=== PATIENT | male | born 1960 | race Caucasian/White ===

== ENCOUNTER → 2022-10-23 | Day surgery (SDC) | payer MEDICARE | END | disposition home or self-care (01) | LOC: RAD 07:26 | PROVIDERS: ATTEND Orthopaedic Surgery Sports Medicine | PROC: BP281ZZ Computerized Tomography (CT Scan) of Right Shoulder using Low Osmolar Contrast (ICD-10-PCS; principal; 2022-10-23) | DX: M25.511 Pain in right shoulder (principal) | CPT/HCPCS: 23350 ==

== ENCOUNTER 2023-01-02 18:25 | Inpatient (IN) | payer MEDICARE ==
[~2023-01-02 18:25] MED LIST: Bisacodyl 10 MG SUPP PR PRN; Heparin 10,000 UNITS/ 10 ML VIAL ONE; Labetalol HCl 100 MG/20 ML VIAL SLOW IVP PRN; Ondansetron PF 4 MG/2 ML Vial ONE; PHENYLEPHRINE-NS 100 MCG/ML 10 ML SYRINGE ONE; Phenylephrine 10 MG/ML VIAL ONE; Rocuronium Bromide 10 MG/ML (10ML VIAL) ONE; SUGAMMADEX SODIUM 200 MG/2 ML VIAL ONE; Succinylcholine 200 MG/10 ml SYRINGE FS ONE; fentaNYL 50 mcg/mL 1 mL Vial ONE; niCARdipine 25 MG in Sodium Chloride 0.9% 250 ML 250 ML IVPB PRN; niCARdipine 25 MG/10 ML SDV ONE
[2023-01-02] MEDS ORDERED: Promethazine HCl 25 MG/ML VIAL IM PRN (19:15)
[2023-01-02] MEDS ORDERED: Ondansetron HCl/PF 4 MG/2 ML Vial IVP PRN (19:15)
[2023-01-02] MEDS: Atorvastatin Calcium 40 MG TAB PO SCH (20:41)
[2023-01-02] MEDS: Sodium Chloride 0.9% 1,000 ML IV SCH (20:41)
[2023-01-02] MEDS ORDERED: Dextrose 50% Abboject 50 ML SYRINGE SLOW IVP PRN (20:48)
[2023-01-02] MEDS ORDERED: Glucagon 1 MG/ML KIT IM PRN (20:48)
[2023-01-02] MEDS ORDERED: Dextrose 5% in Water 1,000 ML IV PRN (20:48)
[2023-01-02] MEDS ORDERED: Electrolyte Replacement Protocol 1 EACH FS ONE (20:49)
[2023-01-02] MEDS ORDERED: Electrolyte Replacement Protocol FS PRN (21:00)
[2023-01-02 23:33] VITALS: BMI 37.6
[2023-01-03 03:54] LABS: #Eosinphils 0.2 thou/uL (0.0-0.7); #Neutrophils 6.2 thou/uL (1.40-6.50); %Basophils 0.4 % (0.0-1.0); %Eosinophils 2.1 % (0.0-10.0); %Lymphocytes 18.2 % (21.0-51.0); %Monocytes 10.7 % (0.0-10.0); %Neutrophils 68.4 % (42.0-75.0); Hemoglobin 12.3 g/dL (14.0-18.0); Mean Corpuscular HGB CONC 31.6 g/dL (32.0-36.0); Mean Corpuscular Volume 88.6 fl (78.0-98.0); Mean Platelet Volume 10.6 fL (7.4-10.4); Platelet Count 174 10x3/uL (130-400); RBC Distribution Width 14.4 % (11.5-14.5); Red Blood Cell (RBC) Count 4.39 mill/uL (4.70-6.10); White Blood Cell (WBC) Count 9.1 10x3/uL (4.8-10.8)
[2023-01-03 04:04] LABS: Hemoglobin A1c 6.8 % (4.0-6.0)
[2023-01-03 04:19] LABS: Anion Gap 12 mmol/L (10-20); BUN (Urea Nitrogen) 16 mg/dL (8.4-25.7); Calc. Creatinine Clearance 129 mL/min (70-130); Calcium 8.5 mg/dL (7.8-10.44); Carbon Dioxide 24 mmol/L (23-31); Chloride 110 mmol/L (98-107); Cholesterol 163 mg/dl (< 200 Desired); Estimated GFR 73; Glucose 126 mg/dL (80-115); Potassium 3.8 mmol/L (3.5-5.1); Sodium 142 mmol/L (136-145)
[2023-01-03 04:20] LABS: Cardiac Risk 3.4 (Less than 4.5); HDL Cholesterol 48 mg/dL (>60 Neg Risk); LDL Cholesterol, Calculated 99 mg/dL; Magnesium 1.7 mg/dL (1.6-2.6); Triglycerides 82 mg/dL (Less than 150)
[2023-01-03] MEDS ORDERED: Magnesium 2 GM/50 ML(in water) 2 GM in Premix Bag 1 BAG IVPB SCH (08:00)
[2023-01-03] MEDS: Sodium Chloride 0.9% 1,000 ML IV SCH ×2 (08:45→19:03)
[2023-01-03] MEDS: Aspirin 325 mg Enteric Coated Tablet PO SCH (08:46)
[2023-01-03] MEDS: Pantoprazole 40 MG VIAL IVP SCH (08:46)
[2023-01-03] MEDS: Aspirin 300 MG Suppository PR SCH (08:46)
[2023-01-03] MEDS: hydrALAZINE 20 MG/ML VIAL SLOW IVP PRN ×2 (14:14→17:58)
[2023-01-03] MEDS ORDERED: Scopolamine 1.5 mg/72 hour Patch TD SCH (16:00)
[2023-01-03] MEDS: Atorvastatin Calcium 40 MG TAB PO SCH (19:39)
[2023-01-04] MEDS: Pantoprazole 40 MG VIAL IVP SCH (10:09)
[2023-01-04] MEDS: hydrALAZINE 20 MG/ML VIAL SLOW IVP PRN ×2 (10:10→16:51)
[2023-01-04] MEDS: Sodium Chloride 0.9% 1,000 ML IV SCH (10:24)
[2023-01-04] MEDS: Aspirin 325 mg Enteric Coated Tablet PO SCH (12:15)
[2023-01-04] MEDS: Aspirin 300 MG Suppository PR SCH (12:15)
[2023-01-04] MEDS: Amlodipine 10 MG TAB PO SCH (12:15)
[2023-01-04] MEDS: Valsartan 80 MG TAB PO SCH ×2 (12:15→20:23)
[2023-01-04] MEDS ORDERED: Electrolyte Replacement Protocol 1 EACH FS SCH (18:30)
[2023-01-04] MEDS: Folic Acid 1 MG TAB PO SCH (20:24)
[2023-01-04] MEDS: Atorvastatin Calcium 40 MG TAB PO SCH (20:24)
[2023-01-04] MEDS: Multivit, Therapeutic 1 TAB PO SCH (20:24)
[2023-01-04] MEDS: Cyanocobalamin (Vitamin B-12) 1,000 MCG TAB PO SCH (20:25)
[2023-01-04] MEDS: Senokot S 8.6-50 MG TAB PO SCH (20:27)
[2023-01-05 05:29] LABS: #Eosinphils 0.2 thou/uL (0.0-0.7); #Neutrophils 5.8 thou/uL (1.40-6.50); %Basophils 0.5 % (0.0-1.0); %Eosinophils 2.4 % (0.0-10.0); %Lymphocytes 12.6 % (21.0-51.0); %Monocytes 12.1 % (0.0-10.0); Hemoglobin 12.8 g/dL (14.0-18.0); Mean Corpuscular HGB CONC 32.1 g/dL (32.0-36.0); Mean Corpuscular Hemoglobin 28.4 pg (27.0-31.0); Mean Corpuscular Volume 88.7 fl (78.0-98.0); Mean Platelet Volume 9.7 fL (7.4-10.4); Platelet Count 161 10x3/uL (130-400); RBC Distribution Width 14.3 % (11.5-14.5)
[2023-01-05 05:56] LABS: Anion Gap 13 mmol/L (10-20); BUN (Urea Nitrogen) 13 mg/dL (8.4-25.7); Calc. Creatinine Clearance 143 mL/min (70-130); Calcium 8.8 mg/dL (7.8-10.44); Carbon Dioxide 23 mmol/L (23-31); Chloride 109 mmol/L (98-107); Estimated GFR 84; Glucose 138 mg/dL (80-115); Magnesium 1.9 mg/dL (1.6-2.6); Phosphorus 2.5 mg/dL (2.3-4.7); Potassium 3.5 mmol/L (3.5-5.1); Sodium 141 mmol/L (136-145)
[2023-01-05] MEDS ORDERED: Potassium Chloride 20 MEQ TAB PO SCH (08:00)
[2023-01-05] MEDS ORDERED: Magnesium 2 GM/50 ML(in water) 2 GM in Premix Bag 1 BAG IVPB SCH (08:00)
[2023-01-05] MEDS: Amlodipine 10 MG TAB PO SCH (09:04)
[2023-01-05] MEDS: Aspirin 325 mg Enteric Coated Tablet PO SCH (09:04)
[2023-01-05] MEDS: Valsartan 80 MG TAB PO SCH ×2 (09:04→20:07)
[2023-01-05] MEDS: Pantoprazole 40 MG VIAL IVP SCH (09:05)
[2023-01-05] MEDS: Senokot S 8.6-50 MG TAB PO SCH ×2 (09:06→20:07)
[2023-01-05] MEDS ORDERED: Metoprolol Tartrate 25 MG TAB PO SCH ×2 (09:15→21:00)
[2023-01-05] MEDS ORDERED: Polyethylene Glycol 3350 17 GM Packet PO PRN (17:43)
[2023-01-05] MEDS: Folic Acid 1 MG TAB PO SCH (20:07)
[2023-01-05] MEDS: Atorvastatin Calcium 40 MG TAB PO SCH (20:07)
[2023-01-05] MEDS: Cyanocobalamin (Vitamin B-12) 1,000 MCG TAB PO SCH (20:07)
[2023-01-05] MEDS: Multivit, Therapeutic 1 TAB PO SCH (20:07)
[2023-01-06 05:45] LABS: #Basophils 0.1 thou/uL (0.0-0.2); #Eosinphils 0.2 thou/uL (0.0-0.7); #Monocytes 1.2 thou/uL (0.11-0.59); #Neutrophils 6.3 thou/uL (1.40-6.50); %Basophils 0.6 % (0.0-1.0); %Eosinophils 2.4 % (0.0-10.0); %Lymphocytes 10.7 % (21.0-51.0); %Monocytes 13.6 % (0.0-10.0); %Neutrophils 72.2 % (42.0-75.0); Hemoglobin 12.6 g/dL (14.0-18.0); Mean Corpuscular HGB CONC 31.1 g/dL (32.0-36.0); Mean Corpuscular Hemoglobin 28.1 pg (27.0-31.0); Mean Corpuscular Volume 90.4 fl (78.0-98.0); Mean Platelet Volume 10.5 fL (7.4-10.4); Platelet Count 168 10x3/uL (130-400); RBC Distribution Width 14.3 % (11.5-14.5); Red Blood Cell (RBC) Count 4.48 mill/uL (4.70-6.10); White Blood Cell (WBC) Count 8.7 10x3/uL (4.8-10.8)
[2023-01-06 06:11] LABS: Anion Gap 14 mmol/L (10-20); BUN (Urea Nitrogen) 16 mg/dL (8.4-25.7); Calc. Creatinine Clearance 128 mL/min (70-130); Carbon Dioxide 26 mmol/L (23-31); Chloride 104 mmol/L (98-107); Estimated GFR 73; Glucose 129 mg/dL (80-115); Magnesium 1.8 mg/dL (1.6-2.6); Potassium 4.1 mmol/L (3.5-5.1); Sodium 140 mmol/L (136-145)
[2023-01-06] MEDS ORDERED: Magnesium 2 GM/50 ML(in water) 2 GM in Premix Bag 1 BAG IVPB SCH (08:00)
[2023-01-06] MEDS: Aspirin 325 mg Enteric Coated Tablet PO SCH (09:03)
[2023-01-06] MEDS: Valsartan 80 MG TAB PO SCH ×2 (09:03→20:35)
[2023-01-06] MEDS: Amlodipine 10 MG TAB PO SCH (09:04)
[2023-01-06] MEDS: Senokot S 8.6-50 MG TAB PO SCH ×2 (09:04→20:35)
[2023-01-06] MEDS: Pantoprazole 40 MG VIAL IVP SCH (09:05)
[2023-01-06] MEDS: Acetaminophen 325 MG TAB PO PRN ×2 (10:21→16:24)
[2023-01-06] MEDS ORDERED: Lidocaine 4% Patch TD SCH (12:00)
[2023-01-06] MEDS ORDERED: Loratadine 10 MG TAB PO PRN (13:49)
[2023-01-06] MEDS: Folic Acid 1 MG TAB PO SCH (20:35)
[2023-01-06] MEDS: Cyanocobalamin (Vitamin B-12) 1,000 MCG TAB PO SCH (20:35)
[2023-01-06] MEDS: Atorvastatin Calcium 40 MG TAB PO SCH (20:35)
[2023-01-06] MEDS: Multivit, Therapeutic 1 TAB PO SCH (20:35)
[2023-01-07] MEDS ORDERED: Transdermal Patch Removal TOP SCH (00:01)
[2023-01-07] MEDS: Acetaminophen 325 MG TAB PO PRN (04:59)
[2023-01-07 05:32] LABS: #Eosinphils 0.1 thou/uL (0.0-0.7); #Monocytes 1.2 thou/uL (0.11-0.59); %Basophils 0.4 % (0.0-1.0); %Lymphocytes 9.8 % (21.0-51.0); %Monocytes 12.8 % (0.0-10.0); %Neutrophils 75.6 % (42.0-75.0); Hemoglobin 12.7 g/dL (14.0-18.0); Mean Corpuscular HGB CONC 30.7 g/dL (32.0-36.0); Mean Corpuscular Hemoglobin 27.7 pg (27.0-31.0); Mean Corpuscular Volume 90.4 fl (78.0-98.0); Mean Platelet Volume 10.7 fL (7.4-10.4); Platelet Count 160 10x3/uL (130-400); RBC Distribution Width 14.1 % (11.5-14.5); Red Blood Cell (RBC) Count 4.58 mill/uL (4.70-6.10); White Blood Cell (WBC) Count 9.3 10x3/uL (4.8-10.8)
[2023-01-07 05:59] LABS: Anion Gap 13 mmol/L (10-20); BUN (Urea Nitrogen) 17 mg/dL (8.4-25.7); Calc. Creatinine Clearance 132 mL/min (70-130); Calcium 9.1 mg/dL (7.8-10.44); Carbon Dioxide 26 mmol/L (23-31); Chloride 107 mmol/L (98-107); Estimated GFR 75; Glucose 132 mg/dL (80-115); Potassium 4.1 mmol/L (3.5-5.1); Sodium 142 mmol/L (136-145)
[2023-01-07] MEDS ORDERED: Magnesium 2 GM/50 ML(in water) 2 GM in Premix Bag 1 BAG IVPB SCH (08:00)
[2023-01-07] MEDS: Amlodipine 10 MG TAB PO SCH (08:47)
[2023-01-07] MEDS: Aspirin 325 mg Enteric Coated Tablet PO SCH (08:47)
[2023-01-07] MEDS: Pantoprazole 40 MG VIAL IVP SCH (08:47)
[2023-01-07] MEDS: Senokot S 8.6-50 MG TAB PO SCH ×2 (08:47→20:45)
[2023-01-07] MEDS: Valsartan 80 MG TAB PO SCH ×2 (08:47→20:37)
[2023-01-07] MEDS ORDERED: Colchicine 0.6 MG TAB PO SCH ×2 (12:00→13:00)
[2023-01-07] MEDS: Dextrose 5 %-0.45 % NaCl 1,000 ML IV SCH (17:10)
[2023-01-07] MEDS: Cyanocobalamin (Vitamin B-12) 1,000 MCG TAB PO SCH (20:37)
[2023-01-07] MEDS: Atorvastatin Calcium 40 MG TAB PO SCH (20:37)
[2023-01-07] MEDS: Multivit, Therapeutic 1 TAB PO SCH (20:45)
[2023-01-07] MEDS: Folic Acid 1 MG TAB PO SCH (20:45)
[2023-01-08 05:48] LABS: #Eosinphils 0.2 thou/uL (0.0-0.7); #Monocytes 1.4 thou/uL (0.11-0.59); #Neutrophils 6.2 thou/uL (1.40-6.50); %Basophils 0.5 % (0.0-1.0); %Eosinophils 1.8 % (0.0-10.0); %Lymphocytes 11.7 % (21.0-51.0); %Monocytes 15.8 % (0.0-10.0); %Neutrophils 69.9 % (42.0-75.0); Hemoglobin 11.7 g/dL (14.0-18.0); Mean Corpuscular HGB CONC 31.5 g/dL (32.0-36.0); Mean Corpuscular Hemoglobin 28.3 pg (27.0-31.0); Mean Corpuscular Volume 89.8 fl (78.0-98.0); Mean Platelet Volume 10.8 fL (7.4-10.4); Platelet Count 161 10x3/uL (130-400); Red Blood Cell (RBC) Count 4.13 mill/uL (4.70-6.10); White Blood Cell (WBC) Count 8.9 10x3/uL (4.8-10.8)
[2023-01-08 06:15] LABS: Anion Gap 12 mmol/L (10-20); BUN (Urea Nitrogen) 17 mg/dL (8.4-25.7); Calc. Creatinine Clearance 123 mL/min (70-130); Calcium 8.4 mg/dL (7.8-10.44); Carbon Dioxide 27 mmol/L (23-31); Chloride 104 mmol/L (98-107); Estimated GFR 69; Glucose 127 mg/dL (80-115); Potassium 4.1 mmol/L (3.5-5.1); Sodium 139 mmol/L (136-145)
[2023-01-08 07:54] LABS: Bilirubin Negative (Negative); Blood, Urine Negative (Negative); Clarity Extra Turbid (Clear); Glucose, Urine (Dipstick) Normal (Negative); Ketone, Urine Negative (Negative); Leukocyte Negative Leu/uL (Negative); Nitrite Negative (Negative); Protein, Urine (Dipstick) 10 mg/dL (Neg-Trace); Specific Gravity, Urine 1.021 (1.002-1.036); Urobilinogen Normal mg/dL (Less than 2)
[2023-01-08] MEDS: Senokot S 8.6-50 MG TAB PO SCH ×2 (08:29→21:09)
[2023-01-08] MEDS: Aspirin 325 mg Enteric Coated Tablet PO SCH (08:30)
[2023-01-08] MEDS: Valsartan 80 MG TAB PO SCH ×2 (08:31→21:09)
[2023-01-08] MEDS: Amlodipine 10 MG TAB PO SCH (08:32)
[2023-01-08] MEDS: Acetaminophen 325 MG TAB PO PRN (08:33)
[2023-01-08] MEDS: Pantoprazole 40 MG VIAL IVP SCH (08:34)
[2023-01-08] MEDS: Dextrose 5 %-0.45 % NaCl 1,000 ML IV SCH (10:16)
[2023-01-08] MEDS ORDERED: predniSONE 20 MG TAB PO SCH (11:30)
[2023-01-08] MEDS: Folic Acid 1 MG TAB PO SCH (21:09)
[2023-01-08] MEDS: Atorvastatin Calcium 40 MG TAB PO SCH (21:09)
[2023-01-08] MEDS: Apixaban 5 MG TAB PO SCH (21:09)
[2023-01-08] MEDS: Cyanocobalamin (Vitamin B-12) 1,000 MCG TAB PO SCH (21:09)
[2023-01-08] MEDS: Multivit, Therapeutic 1 TAB PO SCH (21:09)
[2023-01-09] MEDS: Dextrose 5 %-0.45 % NaCl 1,000 ML IV SCH (06:05)
[2023-01-09] MEDS: Senokot S 8.6-50 MG TAB PO SCH ×2 (08:41→20:18)
[2023-01-09] MEDS: Aspirin 81 mg Enteric Coated Tablet PO SCH (08:42)
[2023-01-09] MEDS: Apixaban 5 MG TAB PO SCH ×2 (08:42→20:19)
[2023-01-09] MEDS: Amlodipine 10 MG TAB PO SCH (08:43)
[2023-01-09] MEDS: Valsartan 80 MG TAB PO SCH ×2 (08:43→20:18)
[2023-01-09] MEDS: predniSONE 20 MG TAB PO SCH (08:44)
[2023-01-09] MEDS: Pantoprazole 40 MG VIAL IVP SCH (08:44)
[2023-01-09] MEDS: levETIRAcetam 500 MG TAB PO SCH ×2 (10:22→20:19)
[2023-01-09] MEDS: Cyanocobalamin (Vitamin B-12) 1,000 MCG TAB PO SCH (20:18)
[2023-01-09] MEDS: Folic Acid 1 MG TAB PO SCH (20:19)
[2023-01-09] MEDS: Atorvastatin Calcium 40 MG TAB PO SCH (20:19)
[2023-01-09] MEDS: Multivit, Therapeutic 1 TAB PO SCH (20:19)
[2023-01-10] MEDS: Dextrose 5 %-0.45 % NaCl 1,000 ML IV SCH ×2 (02:44→20:23)
[2023-01-10] MEDS: levETIRAcetam 500 MG TAB PO SCH ×2 (08:35→20:24)
[2023-01-10] MEDS: Amlodipine 10 MG TAB PO SCH (08:35)
[2023-01-10] MEDS: Valsartan 80 MG TAB PO SCH ×2 (08:35→20:24)
[2023-01-10] MEDS: predniSONE 20 MG TAB PO SCH (08:36)
[2023-01-10] MEDS: Apixaban 5 MG TAB PO SCH ×2 (08:36→20:23)
[2023-01-10] MEDS: Senokot S 8.6-50 MG TAB PO SCH ×2 (08:36→20:25)
[2023-01-10] MEDS: Aspirin 81 mg Enteric Coated Tablet PO SCH (08:37)
[2023-01-10] MEDS: Pantoprazole 40 MG VIAL IVP SCH (08:37)
[2023-01-10] MEDS: Multivit, Therapeutic 1 TAB PO SCH (20:24)
[2023-01-10] MEDS: Cyanocobalamin (Vitamin B-12) 1,000 MCG TAB PO SCH (20:24)
[2023-01-10] MEDS: Atorvastatin Calcium 40 MG TAB PO SCH (20:25)
[2023-01-10] MEDS: Folic Acid 1 MG TAB PO SCH (20:25)
[2023-01-11] MEDS: predniSONE 20 MG TAB PO SCH (09:15)
[2023-01-11] MEDS: levETIRAcetam 500 MG TAB PO SCH ×2 (09:15→20:20)
[2023-01-11] MEDS: Apixaban 5 MG TAB PO SCH ×2 (09:15→20:21)
[2023-01-11] MEDS: Aspirin 81 mg Enteric Coated Tablet PO SCH (09:15)
[2023-01-11] MEDS: Pantoprazole 40 MG VIAL IVP SCH (09:16)
[2023-01-11] MEDS: Senokot S 8.6-50 MG TAB PO SCH (09:16)
[2023-01-11] MEDS: Amlodipine 10 MG TAB PO SCH (09:16)
[2023-01-11] MEDS: Valsartan 80 MG TAB PO SCH (09:16)
[2023-01-11] MEDS: Icosapent Ethyl 1 GM CAPSULE PO SCH (17:16)
[2023-01-11] MEDS: Atorvastatin Calcium 40 MG TAB PO SCH (20:20)
[2023-01-11] MEDS: Sacubitril 49 MG/Valsartan 51 MG TABLET PO SCH (20:20)
[2023-01-11] MEDS: Folic Acid 1 MG TAB PO SCH (20:20)
[2023-01-11] MEDS: Cyanocobalamin (Vitamin B-12) 1,000 MCG TAB PO SCH (20:20)
[2023-01-11] MEDS: Multivit, Therapeutic 1 TAB PO SCH (20:21)
[2023-01-12] MEDS: Senokot S 8.6-50 MG TAB PO SCH ×3 (05:52→20:32)
[2023-01-12] MEDS: Icosapent Ethyl 1 GM CAPSULE PO SCH ×2 (09:25→17:04)
[2023-01-12] MEDS: Sacubitril 49 MG/Valsartan 51 MG TABLET PO SCH ×2 (09:25→20:28)
[2023-01-12 09:26] LABS: Chloride 104 mmol/L (98-107)
[2023-01-12] MEDS: levETIRAcetam 500 MG TAB PO SCH ×2 (09:26→20:27)
[2023-01-12] MEDS: Aspirin 81 mg Enteric Coated Tablet PO SCH (09:26)
[2023-01-12] MEDS: Apixaban 5 MG TAB PO SCH ×2 (09:26→20:27)
[2023-01-12] MEDS: Amlodipine 10 MG TAB PO SCH (09:26)
[2023-01-12] MEDS: predniSONE 20 MG TAB PO SCH (09:26)
[2023-01-12 09:27] LABS: Calcium 9.3 mg/dL (7.8-10.44); Sodium 140 mmol/L (136-145)
[2023-01-12 09:28] LABS: Glucose 139 mg/dL (80-115)
[2023-01-12 09:29] LABS: Anion Gap 14 mmol/L (10-20); Carbon Dioxide 26 mmol/L (23-31)
[2023-01-12 09:30] LABS: Phosphorus 3.2 mg/dL (2.3-4.7)
[2023-01-12 09:31] LABS: Calc. Creatinine Clearance 130 mL/min (70-130); Estimated GFR 73
[2023-01-12 09:32] LABS: BUN (Urea Nitrogen) 20 mg/dL (8.4-25.7); Magnesium 1.7 mg/dL (1.6-2.6)
[2023-01-12] MEDS ORDERED: Magnesium 2 GM/50 ML(in water) 2 GM in Premix Bag 1 BAG IVPB SCH ×2 (09:45→10:00)
[2023-01-12] MEDS: Atorvastatin Calcium 40 MG TAB PO SCH (20:28)
[2023-01-12] MEDS: Cyanocobalamin (Vitamin B-12) 1,000 MCG TAB PO SCH (20:28)
[2023-01-12] MEDS: Folic Acid 1 MG TAB PO SCH (20:28)
[2023-01-12] MEDS: Multivit, Therapeutic 1 TAB PO SCH (20:28)
[2023-01-13] MEDS: Icosapent Ethyl 1 GM CAPSULE PO SCH ×2 (09:37→17:06)
[2023-01-13] MEDS: Amlodipine 5 MG TAB PO SCH (09:37)
[2023-01-13] MEDS: Magnesium Oxide 400 MG TAB PO SCH ×2 (09:38→21:11)
[2023-01-13] MEDS: Sacubitril 49 MG/Valsartan 51 MG TABLET PO SCH ×2 (09:38→21:11)
[2023-01-13] MEDS: Apixaban 5 MG TAB PO SCH ×2 (09:38→21:11)
[2023-01-13] MEDS: Aspirin 81 mg Enteric Coated Tablet PO SCH (09:38)
[2023-01-13] MEDS: levETIRAcetam 500 MG TAB PO SCH ×2 (09:38→21:11)
[2023-01-13] MEDS: Senokot S 8.6-50 MG TAB PO SCH ×2 (09:39→21:11)
[2023-01-13] MEDS: Multivit, Therapeutic 1 TAB PO SCH (21:11)
[2023-01-13] MEDS: Atorvastatin Calcium 40 MG TAB PO SCH (21:11)
[2023-01-13] MEDS: Folic Acid 1 MG TAB PO SCH (21:11)
[2023-01-13] MEDS: Cyanocobalamin (Vitamin B-12) 1,000 MCG TAB PO SCH (21:12)
[2023-01-14] MEDS: Sacubitril 49 MG/Valsartan 51 MG TABLET PO SCH (09:10)
[2023-01-14] MEDS: Icosapent Ethyl 1 GM CAPSULE PO SCH (09:10)
[2023-01-14] MEDS: Senokot S 8.6-50 MG TAB PO SCH (09:10)
[2023-01-14] MEDS: Aspirin 81 mg Enteric Coated Tablet PO SCH (09:10)
[2023-01-14] MEDS: Apixaban 5 MG TAB PO SCH (09:11)
[2023-01-14] MEDS: levETIRAcetam 500 MG TAB PO SCH (09:11)
[2023-01-14] MEDS: Amlodipine 5 MG TAB PO SCH (09:11)
[2023-01-14] MEDS: Magnesium Oxide 400 MG TAB PO SCH (09:12)
[2023-01-14 12:43] VITALS: BP 131/77; TEMP 96.8
== END 2023-01-14 14:15 | DRG 23 ==
LOC: SDC 18:25 → CCU 20:11 → 2SE 01-04 13:41
PROVIDERS: ADMIT Neurological Surgery; ATTEND Internal Medicine
PROC: 4A023N7 Measurement of Cardiac Sampling and Pressure, Left Heart, Percutaneous Approach (ICD-10-PCS; principal; 2023-01-02)
PROC: B2151ZZ Fluoroscopy of Left Heart using Low Osmolar Contrast (ICD-10-PCS; 2023-01-02)
PROC: 03CG0ZZ Extirpation of Matter from Intracranial Artery, Open Approach (ICD-10-PCS; 2023-01-02)
DX: I63.412 Cerebral infarction due to embolism of left middle cerebral artery (principal); G93.6 Cerebral edema; I61.9 Nontraumatic intracerebral hemorrhage, unspecified; I50.42 Chronic combined systolic (congestive) and diastolic (congestive) heart failure; I42.9 Cardiomyopathy, unspecified; I47.20 Ventricular tachycardia, unspecified; G81.91 Hemiplegia, unspecified affecting right dominant side; R47.01 Aphasia; R13.10 Dysphagia, unspecified; I25.10 Atherosclerotic heart disease of native coronary artery without angina pectoris; N18.30 Chronic kidney disease, stage 3 unspecified; I12.9 Hypertensive chronic kidney disease with stage 1 through stage 4 chronic kidney disease, or unspecified chronic kidney disease; E78.5 Hyperlipidemia, unspecified; I48.0 Paroxysmal atrial fibrillation; D64.9 Anemia, unspecified; E11.9 Type 2 diabetes mellitus without complications; M79.672 Pain in left foot; Z95.1 Presence of aortocoronary bypass graft; Z82.49 Family history of ischemic heart disease and other diseases of the circulatory system; Z79.82 Long term (current) use of aspirin; Z79.899 Other long term (current) drug therapy; Z95.810 Presence of automatic (implantable) cardiac defibrillator; Z90.49 Acquired absence of other specified parts of digestive tract; R29.715 NIHSS score 15
CPT/HCPCS: 36415; 36416; 70450; 70551; 71045; 80048; 80061; 81003; 83036; 83735; 84100; 84443; 84550; 85025; 93306; 93880; 95712; 95819; 95957; C1769; C1887; C1894; C9113; J0360; J1644; J2370; J2405; J3010; J3475; J7042; J7050; J7512

== ENCOUNTER 2023-02-08 05:55 | Day surgery (SDC) | payer MEDICARE ==
[2023-01-30 16:35] VITALS: BMI 34.7
[2023-01-30 17:12] LABS: Hematocrit 43.8 % (38.8-50.0); Hemoglobin 13.8 g/dL (13.5-17.5); Mean Corpuscular HGB CONC 31.5 g/dL (32.0-36.0); Mean Corpuscular Hemoglobin 27.5 pg (27.0-33.0); Mean Corpuscular Volume 87.3 fl (81.2-95.1); Mean Platelet Volume 11.1 fl (7.4-10.4); Platelet Count 205 10x3/uL (150-450); RBC Distribution Width 14.4 % (11.5-14.5); Red Blood Cell (RBC) Count 5.02 10x6/uL (4.32-5.72); White Blood Cell (WBC) Count 6.8 10x3/uL (3.5-10.5)
[2023-01-30 17:28] LABS: INR-International Normal Ratio 1.1; Prothrombin Time 11.4 sec (9.5-12.1)
[2023-01-30 17:42] LABS: ALT (SGPT) 52 U/L (8-55); AST (SGOT) 36 U/L (5-34); Albumin 4.3 g/dL (3.4-4.8); Alkaline Phosphatase 137 U/L (40-110); Anion Gap 18 mmol/L (10-20); BUN (Urea Nitrogen) 34 mg/dL (8.4-25.7); Bilirubin, Total 1.2 mg/dL (0.2-1.2); Calc. Creatinine Clearance 92 mL/min (70-130); Calcium 8.9 mg/dL (7.8-10.44); Carbon Dioxide 19 mmol/L (23-31); Chloride 110 mmol/L (98-107); Estimated GFR 56; Globulin 2.6 g/dL (2.4-3.5); Glucose 104 mg/dL (80-115); Protein, Total 6.9 g/dL (5.8-8.1); Sodium 143 mmol/L (136-145)
[2023-02-08] MEDS ORDERED: Midazolam HCl 2 mg/2 ml Vial ONE (07:33)
[2023-02-08] MEDS ORDERED: PROPOFOL 200 MG/20 ML VIAL ONE (07:43)
== END 2023-02-08 08:45 | disposition home or self-care (01) ==
LOC: SDC 05:55
PROVIDERS: ATTEND Internal Medicine Cardiovascular Disease
PROC: B246ZZ4 Ultrasonography of Right and Left Heart, Transesophageal (ICD-10-PCS; principal; 2023-02-08)
DX: I48.0 Paroxysmal atrial fibrillation (principal); I50.42 Chronic combined systolic (congestive) and diastolic (congestive) heart failure; I13.0 Hypertensive heart and chronic kidney disease with heart failure and stage 1 through stage 4 chronic kidney disease, or unspecified chronic kidney disease; E78.5 Hyperlipidemia, unspecified; I25.10 Atherosclerotic heart disease of native coronary artery without angina pectoris; E11.22 Type 2 diabetes mellitus with diabetic chronic kidney disease; Z86.73 Personal history of transient ischemic attack (TIA), and cerebral infarction without residual deficits; D63.1 Anemia in chronic kidney disease; Z95.810 Presence of automatic (implantable) cardiac defibrillator; Z79.82 Long term (current) use of aspirin; Z79.01 Long term (current) use of anticoagulants; Z92.89 Personal history of other medical treatment; Z79.899 Other long term (current) drug therapy
CPT/HCPCS: 80053; 85027; 85610; 93312; J2250; J2704

== ENCOUNTER 2023-04-30 05:41 | Day surgery (SDC) | payer MEDICARE ==
[2023-04-26 12:43] VITALS: BMI 33.7
[2023-04-26 13:05] LABS: Hematocrit 41.5 % (38.8-50.0); Hemoglobin 12.9 g/dL (13.5-17.5); Mean Corpuscular HGB CONC 31.1 g/dL (32.0-36.0); Mean Corpuscular Hemoglobin 27.3 pg (27.0-33.0); Mean Corpuscular Volume 87.7 fl (81.2-95.1); Platelet Count 204 10x3/uL (150-450); RBC Distribution Width 14.8 % (11.5-14.5); Red Blood Cell (RBC) Count 4.73 10x6/uL (4.32-5.72); White Blood Cell (WBC) Count 5.1 10x3/uL (3.5-10.5)
[2023-04-26 13:33] LABS: INR-International Normal Ratio 1.1; Prothrombin Time 11.5 sec (9.5-12.1)
[2023-04-26 13:35] LABS: Anion Gap 14 mmol/L (10-20); BUN (Urea Nitrogen) 12 mg/dL (8.4-25.7); Calc. Creatinine Clearance 0 mL/min (70-130); Calcium 8.6 mg/dL (7.8-10.44); Carbon Dioxide 22 mmol/L (23-31); Chloride 109 mmol/L (98-107); Estimated GFR 95; Glucose 101 mg/dL (80-115); Potassium 3.9 mmol/L (3.5-5.1); Sodium 141 mmol/L (136-145)
[2023-04-30] MEDS ORDERED: PROPOFOL 200 MG/20 ML VIAL ONE (07:28)
[2023-04-30] MEDS ORDERED: Lidocaine 1% PF 5 ML VIAL ONE (07:28)
== END 2023-04-30 08:30 | disposition home or self-care (01) ==
LOC: SDC 05:41
PROVIDERS: ATTEND Internal Medicine Cardiovascular Disease
PROC: B245ZZ4 Ultrasonography of Left Heart, Transesophageal (ICD-10-PCS; principal; 2023-04-30)
DX: I48.0 Paroxysmal atrial fibrillation (principal); I13.0 Hypertensive heart and chronic kidney disease with heart failure and stage 1 through stage 4 chronic kidney disease, or unspecified chronic kidney disease; I50.42 Chronic combined systolic (congestive) and diastolic (congestive) heart failure; N18.9 Chronic kidney disease, unspecified; I34.0 Nonrheumatic mitral (valve) insufficiency; E78.5 Hyperlipidemia, unspecified; Z95.818 Presence of other cardiac implants and grafts; Z86.73 Personal history of transient ischemic attack (TIA), and cerebral infarction without residual deficits; Z95.810 Presence of automatic (implantable) cardiac defibrillator; Z79.82 Long term (current) use of aspirin; Z79.899 Other long term (current) drug therapy; Z79.01 Long term (current) use of anticoagulants
CPT/HCPCS: 80048; 85027; 85610; 93312; J2704

== ENCOUNTER 2023-05-27 14:20 | Outpatient (CLI) | payer MEDICARE | END 2023-05-27 14:21 | disposition home or self-care (01) | LOC: BICRAD 14:20 | PROVIDERS: ATTEND Internal Medicine Cardiovascular Disease | DX: I50.42 Chronic combined systolic (congestive) and diastolic (congestive) heart failure (principal) | CPT/HCPCS: 71046 ==

== ENCOUNTER 2025-03-09 11:37 | Inpatient (IN) | payer MEDICARE, OTHER ==
[2025-03-09 13:49] LABS: #Basophils 0.08 10x3/uL (0.0-0.2); #Eosinophils 0.16 10x3/uL (0.0-0.7); #Monocytes 0.74 10x3/uL (0.11-0.59); #Neutrophils 3.94 10x3/uL (1.40-6.50); %Basophils 1.2 % (0.0-1.0); %Eosinophils 2.4 % (0.0-10.0); %Lymphocytes 25.5 % (21.0-51.0); %Monocytes 11.2 % (0.0-10.0); %Neutrophils 59.4 % (42.0-75.0); Hematocrit 43.3 % (42.0-52.0); Hemoglobin 12.8 g/dL (14.0-18.0); Mean Corpuscular Hemoglobin 26.6 pg (27.0-31.0); Mean Corpuscular Volume 90.0 fL (78.0-98.0); Platelet Count 208 10x3/uL (130-400); Red Blood Cell (RBC) Count 4.81 mill/uL (4.70-6.10); White Blood Cell (WBC) Count 6.63 10x3/uL (4.8-10.8)
[2025-03-09 14:24] LABS: ALT (SGPT) 33 U/L (Less than 45); AST (SGOT) 38 U/L (11-34); Albumin 3.7 g/dL (3.1-4.5); Alkaline Phosphatase 132 U/L (40-110); Anion Gap 12 mmol/L (10-20); BUN (Urea Nitrogen) 26 mg/dL (8.4-25.7); Bilirubin, Total 1.3 mg/dL (0.3-1.2); Calc. Creatinine Clearance 0 mL/min (70-130); Calcium 8.7 mg/dL (7.8-10.44); Carbon Dioxide 18 mmol/L (23-31); Chloride 110 mmol/L (98-107); Globulin 3.0 g/dL (2.4-3.5); Glucose 103 mg/dL (80-115); Potassium 4.3 mmol/L (3.5-5.1); Sodium 136 mmol/L (136-145)
[2025-03-09] MEDS ORDERED: Senokot S 8.6-50 MG TAB PO PRN (15:48)
[2025-03-09] MEDS ORDERED: Melatonin 3 MG TAB PO PRN (15:48)
[2025-03-09] MEDS ORDERED: Ondansetron PF 4 MG/2 ML Vial IVP PRN (15:48)
[2025-03-09] MEDS: Acetaminophen 325 MG TAB PO SCH (16:00)
[2025-03-09] MEDS ORDERED: Electrolyte Replacement Protocol 1 EACH FS SCH (16:00)
[2025-03-09] MEDS: Sacubitril 49 MG/Valsartan 51 MG TABLET PO SCH (22:31)
[2025-03-10 02:23] VITALS: BMI 33.7
[2025-03-10 05:17] LABS: #Basophils 0.06 10x3/uL (0.0-0.2); #Eosinophils 0.16 10x3/uL (0.0-0.7); #Monocytes 0.82 10x3/uL (0.11-0.59); #Neutrophils 3.42 10x3/uL (1.40-6.50); %Basophils 1.0 % (0.0-1.0); %Eosinophils 2.6 % (0.0-10.0); %Lymphocytes 26.1 % (21.0-51.0); %Monocytes 13.5 % (0.0-10.0); %Neutrophils 56.5 % (42.0-75.0); Hematocrit 41.2 % (42.0-52.0); Hemoglobin 12.6 g/dL (14.0-18.0); Mean Corpuscular Hemoglobin 26.8 pg (27.0-31.0); Mean Corpuscular Volume 87.5 fL (78.0-98.0); Platelet Count 187 10x3/uL (130-400); Red Blood Cell (RBC) Count 4.71 mill/uL (4.70-6.10); White Blood Cell (WBC) Count 6.06 10x3/uL (4.8-10.8)
[2025-03-10 05:34] LABS: ALT (SGPT) 27 U/L (Less than 45); AST (SGOT) 28 U/L (11-34); Albumin 3.5 g/dL (3.1-4.5); Alkaline Phosphatase 127 U/L (40-110); Bilirubin, Direct 0.4 mg/dL (0.1-0.3); Bilirubin, Total 1.1 mg/dL (0.3-1.2)
[2025-03-10 05:37] LABS: Anion Gap 14 mmol/L (10-20); BUN (Urea Nitrogen) 26 mg/dL (8.4-25.7); Calc. Creatinine Clearance 110 mL/min (70-130); Calcium 8.4 mg/dL (7.8-10.44); Carbon Dioxide 20 mmol/L (23-31); Chloride 111 mmol/L (98-107); Glucose 103 mg/dL (80-115); Potassium 4.1 mmol/L (3.5-5.1); Sodium 141 mmol/L (136-145)
[2025-03-10] MEDS: Metoprolol Succinate XL 50 MG ER.TAB PO SCH (09:33)
[2025-03-10] MEDS: Aspirin Chewable 81 MG TAB PO SCH (09:33)
[2025-03-10] MEDS: Folic Acid 1 MG TAB PO SCH (09:33)
[2025-03-10] MEDS: Sertraline 100 MG TAB PO SCH (09:33)
[2025-03-10] MEDS: PNEUMOC 20-VAL CONJ-DIP CRM/PF 0.5 ML SYRINGE IM ONE (10:50)
[2025-03-10] MEDS ORDERED: Bacitracin Zinc Ointment 30 gm TUBE ONE (12:57)
[2025-03-10] MEDS ORDERED: CEFAZOLIN 2 GM VIAL ONE (12:57)
[2025-03-10] MEDS ORDERED: Glycopyrrolate 0.2 MG/ML 5 ML SYRINGE ONE (13:43)
[2025-03-10] MEDS ORDERED: PROPOFOL 200 MG/20 ML VIAL ONE (13:43)
[2025-03-10] MEDS ORDERED: Lidocaine 1% PF 5 ML VIAL ONE (13:43)
[2025-03-11] MEDS: Furosemide 40 MG TAB PO SCH (08:47)
[2025-03-11] MEDS: Sodium Bicarbonate Tab 325 MG TAB PO SCH (08:48)
[2025-03-11 12:16] VITALS: BP 129/85
[2025-03-11 12:32] VITALS: TEMP 98.4
[2025-03-11] MEDS ORDERED: Folic Acid 1 MG TAB PO SCH (21:00)
[2025-03-12 14:38] LABS: HIV-1 Quantitative, RNA PCR <20 copies/mL (.)
== END 2025-03-11 16:39 | disposition home or self-care (01) | DRG 513 ==
LOC: ERS 11:37 → ERHOLD 15:55 → SURG A 21:31 → OBSVTOIN 03-10 11:47
PROVIDERS: ADMIT Orthopaedic Surgery Hand Surgery; ATTEND Orthopaedic Surgery Hand Surgery
PROC: 0LB70ZZ Excision of Right Hand Tendon, Open Approach (ICD-10-PCS; principal; 2025-03-11)
PROC: 0RNW0ZZ Release Right Finger Phalangeal Joint, Open Approach (ICD-10-PCS; 2025-03-11)
PROC: 0LQ70ZZ Repair Right Hand Tendon, Open Approach (ICD-10-PCS; 2025-03-11)
PROC: 3E03329 Introduction of Other Anti-infective into Peripheral Vein, Percutaneous Approach (ICD-10-PCS; 2025-03-11)
DX: M86.141 Other acute osteomyelitis, right hand (principal); A41.9 Sepsis, unspecified organism; E87.21 Acute metabolic acidosis; I48.92 Unspecified atrial flutter; I50.42 Chronic combined systolic (congestive) and diastolic (congestive) heart failure; I13.0 Hypertensive heart and chronic kidney disease with heart failure and stage 1 through stage 4 chronic kidney disease, or unspecified chronic kidney disease; M10.041 Idiopathic gout, right hand; N18.30 Chronic kidney disease, stage 3 unspecified; I25.10 Atherosclerotic heart disease of native coronary artery without angina pectoris; I48.91 Unspecified atrial fibrillation; D63.1 Anemia in chronic kidney disease; Z79.899 Other long term (current) drug therapy; Z79.01 Long term (current) use of anticoagulants; Z98.890 Other specified postprocedural states; Z95.5 Presence of coronary angioplasty implant and graft; Z95.1 Presence of aortocoronary bypass graft; Z95.810 Presence of automatic (implantable) cardiac defibrillator; Z98.84 Bariatric surgery status; Z90.49 Acquired absence of other specified parts of digestive tract; Z86.73 Personal history of transient ischemic attack (TIA), and cerebral infarction without residual deficits
CPT/HCPCS: 36415; 80048; 80053; 80076; 83036; 84443; 84550; 85025; 86141; 87070; 87077; 87205; 87536; 88305; 89060; 93005; 93010; 96365; 96376; G0378; J2543; J2704